=== PATIENT | male | born 1950 | race Caucasian/White ===

== ENCOUNTER 2016-06-11 11:35 | Outpatient (CLI) | payer MEDICARE, OTHER ==
[2015-11-06 16:05] VITALS: O2SAT 98
== END 2016-06-11 11:36 | disposition home or self-care (01) | DRG 566 ==
LOC: CONVCARE 11:35
PROVIDERS: ATTEND Orthopaedic Surgery
DX: S42.212K Unspecified displaced fracture of surgical neck of left humerus, subsequent encounter for fracture with nonunion (principal)
CPT/HCPCS: 73030

== ENCOUNTER 2016-07-30 09:42 | Outpatient (CLI) | payer MEDICARE, OTHER ==
[2015-11-06 16:05] VITALS: O2SAT 98
== END 2016-07-30 09:43 | disposition home or self-care (01) | DRG 561 ==
LOC: CONVCARE 09:42
PROVIDERS: ATTEND Orthopaedic Surgery
DX: S42.212D Unspecified displaced fracture of surgical neck of left humerus, subsequent encounter for fracture with routine healing (principal)
CPT/HCPCS: 73030

== ENCOUNTER 2016-09-17 08:58 | Outpatient (CLI) | payer MEDICARE, OTHER ==
[2015-11-06 16:05] VITALS: O2SAT 98
== END 2016-09-17 08:59 | disposition home or self-care (01) | DRG 561 ==
LOC: CONVCARE 08:58
PROVIDERS: ATTEND Orthopaedic Surgery
DX: S42.302D Unspecified fracture of shaft of humerus, left arm, subsequent encounter for fracture with routine healing (principal)
CPT/HCPCS: 73030

== ENCOUNTER 2018-08-13 10:28 | Day surgery (SDC) | payer OTHER ==
[2018-08-13] MEDS ORDERED: BUPIVACAINE HCL 0.25% MPF 30 ML SOL INFIL ONE (11:16)
[2018-08-13 11:54] VITALS: O2SAT 98
[2018-08-13] MEDS: DEXAMETHASONE SOD PHOS PF 10 MG/ML SOL IJ ONE ×2 (11:56→12:04)
[2018-08-13 12:09] VITALS: RESP 16
[2018-08-13 12:19] VITALS: BP 163/89; PULSE 75; TEMP 98.9
== END 2018-08-13 12:43 | disposition home or self-care (01) | DRG 552 ==
LOC: SURG 10:28
PROVIDERS: ATTEND Nurse Anesthetist, Certified Registered
DX: M99.53 Intervertebral disc stenosis of neural canal of lumbar region (principal); E11.9 Type 2 diabetes mellitus without complications
CPT/HCPCS: J1100

== ENCOUNTER 2018-09-30 08:56 | Day surgery (SDC) | payer OTHER ==
[2018-09-30 09:32] VITALS: RESP 16
[2018-09-30] MEDS ORDERED: BUPIVACAINE HCL 0.25% MPF 30 ML SOL INFIL ONE (09:54)
[2018-09-30] MEDS: DEXAMETHASONE SOD PHOS PF 10 MG/ML SOL IJ ONE ×2 (10:09→10:15)
[2018-09-30 10:12] VITALS: O2SAT 97
[2018-09-30 10:33] VITALS: PULSE 81; TEMP 97.3
[2018-09-30 10:42] VITALS: BP 184/109
== END 2018-09-30 10:56 | disposition home or self-care (01) | DRG 552 ==
LOC: SURG 08:56
PROVIDERS: ATTEND Nurse Anesthetist, Certified Registered
DX: M51.17 Intervertebral disc disorders with radiculopathy, lumbosacral region (principal); E11.9 Type 2 diabetes mellitus without complications
CPT/HCPCS: J1100